=== PATIENT | male | born 1940 | race Caucasian/White ===

== ENCOUNTER 2018-03-07 11:00 | Inpatient (IN) | payer OTHER, MEDICARE ==
[2018-02-28 14:12] LABS: BASOPHILS % (AUTO) 0.3 % (0-1); EOSINOPHILS # (AUTO) 0.1 X10'3 (0-0.9); EOSINOPHILS % (AUTO) 1.6 % (0-6); LYMPHOCYTES # (AUTO) 1.8 X10'3 (1.1-4.8); LYMPHOCYTES % (AUTO) 27.3 % (21-51); MEAN CORPUSCULAR HEMOGLOBIN 30.4 PG (27.0-31.0); MEAN CORPUSCULAR HGB CONC 33.1 % (33.0-36.5); MEAN CORPUSCULAR VOLUME 91.6 FL (78-98); MEAN PLATELET VOLUME 8.1 FL (7.4-10.4); MONOCYTES # (AUTO) 0.6 X10'3 (0-0.9); MONOCYTES % (AUTO) 9.4 % (2-12); NEUTROPHILS # (AUTO) 4.1 X10'3 (1.8-7.7); NEUTROPHILS % (AUTO) 61.4 % (42-75); PRE OP HEMATOCRIT 41.7 % (42.0-52.0); PRE OP HEMOGLOBIN 13.8 g/dL (14.0-17.9); PRE OP PLATELET COUNT 212 X10'3 (140-440); RED BLOOD COUNT 4.55 X10'6 (4.70-6.10); RED CELL DISTRIBUTION WIDTH 13.1 % (11.5-14.5)
[2018-02-28 14:19] LABS: ALBUMIN 3.9 G/DL (3.4-5.0); ALBUMIN/GLOBULIN RATIO 1.2 (1.1-1.5); ALKALINE PHOSPHATASE 71 IU/L (46-116); BLOOD UREA NITROGEN 21 MG/DL (7-18); BUN/CREATININE RATIO 24.1 (5.4-32.0); CHLORIDE 104 MMOL/L (99-107); CREATININE 0.87 MG/DL (0.60-1.10); PRE OP ALT 28 U/L (30-65); PRE OP ANION GAP 8 (8-16); PRE OP AST 15 U/L (10-37); PRE OP BILIRUB, TOTAL 0.3 MG/DL (0.0-1.0); PRE OP GLUCOSE 97 MG/DL (70-104); PRE OP POTASSIUM 3.8 MMOL/L (3.4-5.1); PRE OP SODIUM 141 MMOL/L (135-145); TOTAL PROTEIN 7.2 G/DL (6.4-8.2); eGFR 85 ML/MIN
[2018-02-28 14:22] LABS: PRE OP PROTIME 10.1 SECONDS (9.0-12.0)
[2018-02-28 14:23] LABS: CLARITY,URINE CLEAR (Clear); COLOR,URINE YELLOW (Yellow); GLUCOSE, URINE NEGATIVE (Neg); KETONES,URINE NEGATIVE (Neg); LEUKOCYTE ESTERASE ,URINE NEGATIVE (Neg); NITRITES, URINE NEGATIVE (Neg); OCCULT BLOOD,URINE TRACE-INTACT (Neg); PROTEIN,URINE NEGATIVE (Neg); UROBILINOGEN,URINE 0.2 E.U/dL (0.2-1.0)
[2018-02-28 14:25] LABS: UA COLLECTION TYPE CLN CATCH MIDSTREAM
[2018-02-28 14:35] LABS: BACTERIA,URINE NONE SEEN /HPF (Neg); RBC,URINE 0-2 /HPF (0-2); SQUAMOUS EPITHELIAL CELL,UR FEW /LPF (FEW); WBC,URINE 0-4 /HPF (0-4)
[~2018-03-07] VITALS: Ht 177.8 cm; Wt 93.0 kg
[2018-03-07] VITALS (17 sets, daily range): BP systolic 104–143; BP diastolic 65–92
[~2018-03-07 11:00] MED LIST: ASPI-529 PO; FINA5TAB11 PO; PRAV80TA3 PO; acetaminophen 325mg tablet PO ONE; ceFAZolin inj. 2,000 MG in dextrose 5%-water 50ml 50 ML IV ONE; celeCOXIB 100mg capsule PO ONE; famotidine 20mg tablet PO ONE; gabapentin 300mg capsule PO ONE; metoclopramide 5 mg/ml inj IV ONE; normal saline 1000ml 1,000 ML IV SCH; oxyCODONE SR 10mg (sust. release) tab PO ONE; ringers solution, lacted 1,000 ML IV SCH; tranexamic acid inj. 1,000 MG in normal saline 100ml IV soln 90 ML IV ONE; vancomycin inj 1,500 MG in normal saline 300ml IV soln IV ONE
[2018-03-07] MEDS ORDERED: LIDOcaine 1% (10mg/ml) 2ml vial ONE (11:26)
[2018-03-07] MEDS ORDERED: diphenhydrAMINE 25mg capsule PO PRN ×2 (11:30)
[2018-03-07] MEDS ORDERED: bisacodyl 10mg suppository rectal RC PRN (11:30)
[2018-03-07] MEDS ORDERED: oxyCODONE/APAP 10/325mg tablet PO PRN (11:30)
[2018-03-07] MEDS ORDERED: ondansetron/PF 4mg/2ml inj IV PRN ×2 (11:30→15:45)
[2018-03-07] MEDS ORDERED: HYDROmorphone 1 mg/ml syringe IV PRN ×2 (11:30)
[2018-03-07] MEDS ORDERED: acetaminophen 325mg tablet PO PRN (11:30)
[2018-03-07] MEDS ORDERED: magnesium hydroxide 30ml (MOM) UD suspension PO PRN (11:30)
[2018-03-07] MEDS ORDERED: vancomycin 1,000mg inj ONE (13:51)
[2018-03-07] MEDS ORDERED: ketorolac trometh. 30mg/ml inj. ONE (13:51)
[2018-03-07] MEDS ORDERED: ROPIVAcaine 0.5% (5mg/ml) 30ml vial ONE (13:57)
[2018-03-07] MEDS ORDERED: LIDOcaine 2% (20mg/ml) 5ml vial ONE (14:00)
[2018-03-07] MEDS ORDERED: propofol inj 20 ML IV ONE (14:01)
[2018-03-07] MEDS ORDERED: fentaNYL/PF 50MCG/1 ML 2ML syringe ONE (14:04)
[2018-03-07] MEDS ORDERED: midazolam 2 mg/2 ml injection ONE (14:05)
[2018-03-07] MEDS ORDERED: ondansetron/PF 4mg/2ml inj ONE (14:47)
[2018-03-07] MEDS ORDERED: dexamethasone sod phosphate 10mg/ml inj ONE (14:47)
[2018-03-07] MEDS ORDERED: sevoflurane 250ml liquid IH ONE (14:47)
[2018-03-07] MEDS ORDERED: ROPIVAcaine inj 250 MG, epiNEPHrine inj 0.5 MG, CloNIDine/PF inj 80 MCG in normal salin... SQ ONE (15:00)
[2018-03-07] MEDS ORDERED: ringers solution, lacted 1,000 ML IV SCH (15:42)
[2018-03-07] MEDS ORDERED: enalaprilat dihydrate 2.5mg/2ml vial IV PRN (15:45)
[2018-03-07] MEDS ORDERED: hydrALAZINE 20mg/ml inj. IV PRN (15:45)
[2018-03-07] MEDS ORDERED: meperidine/PF 25mg/ml syringe IV PRN ×2 (15:45)
[2018-03-07] MEDS ORDERED: morphine 4 MG/ML inj SYRINge IV PRN ×2 (15:45)
[2018-03-07] MEDS ORDERED: cefazolin/dext.iso 2gm/100ml 100 ML IV SCH (20:00)
[2018-03-07] MEDS: ascorbic acid 500mg tablet PO SCH (20:26)
[2018-03-07] MEDS: cefazolin/dext.iso 2gm/50ml 50 ML IV SCH (20:27)
[2018-03-07] MEDS: gabapentin 300mg capsule PO SCH ×2 (20:27→20:29)
[2018-03-07] MEDS: potassium cl 20mEq in 1/2 NS 1,000 ML IV SCH ×2 (20:28→20:29)
[2018-03-07] MEDS ORDERED: tranexamic acid inj. 1,000 MG in normal saline 100ml IV soln 100 ML IV ONE (20:30)
[2018-03-07] MEDS ORDERED: sennosides 8.6mg tablet PO SCH (21:00)
[2018-03-07] MEDS: oxyCODONE/APAP 5-325mg tablet PO PRN (21:07)
[2018-03-08 02:00] VITALS: BP 103/58
[2018-03-08] MEDS: cefazolin/dext.iso 2gm/50ml 50 ML IV SCH ×2 (04:57→12:00)
[2018-03-08] MEDS: potassium cl 20mEq in 1/2 NS 1,000 ML IV SCH ×2 (05:04→11:28)
[2018-03-08 06:00] VITALS: BP 112/69
[2018-03-08 07:06] LABS: BASOPHILS % (AUTO) 0 % (0-1); EOSINOPHILS % (AUTO) 0 % (0-6); HEMATOCRIT 36.1 % (42.0-52.0); HEMOGLOBIN 12.2 g/dl (14.0-17.9); LYMPHOCYTES # (AUTO) 0.7 X10'3 (1.1-4.8); LYMPHOCYTES % (AUTO) 6.9 % (21-51); MEAN CORPUSCULAR HEMOGLOBIN 30.5 PG (27.0-31.0); MEAN CORPUSCULAR HGB CONC 33.7 % (33.0-36.5); MEAN CORPUSCULAR VOLUME 90.7 FL (78-98); MEAN PLATELET VOLUME 8.4 FL (7.4-10.4); MONOCYTES # (AUTO) 0.6 X10'3 (0-0.9); MONOCYTES % (AUTO) 6.1 % (2-12); NEUTROPHILS # (AUTO) 8.7 X10'3 (1.8-7.7); PLATELET COUNT 189 X10'3 (140-440); RED BLOOD COUNT 3.98 X10'6 (4.70-6.10); RED CELL DISTRIBUTION WIDTH 13.3 % (11.5-14.5)
[2018-03-08 07:19] LABS: ANION GAP 7 (8-16); CHLORIDE 103 MMOL/L (99-107); POTASSIUM 4.2 MMOL/L (3.5-5.1); SODIUM 138 MMOL/L (135-145); TOTAL CARBON DIOXIDE 28.2 MMOL/L (24-32)
[2018-03-08] MEDS ORDERED: multivitamins, therapeutics tablet PO SCH (08:00)
[2018-03-08] MEDS ORDERED: aspirin 325mg tablet PO SCH (08:30)
[2018-03-08] MEDS: ascorbic acid 500mg tablet PO SCH (08:38)
[2018-03-08] MEDS: gabapentin 300mg capsule PO SCH ×2 (08:38→13:10)
[2018-03-08] MEDS: oxyCODONE/APAP 5-325mg tablet PO PRN ×2 (08:39→13:10)
[2018-03-08 10:00] VITALS: BP 123/63
[2018-03-08] MEDS ORDERED: ASPI-1 PO (12:14)
[2018-03-08] MEDS ORDERED: celeCOXIB 100mg capsule PO SCH (20:00)
[2018-03-08] MEDS ORDERED: lactobacillus rhamnosus 10,000 MMU CELLS/CAPSULE PO SCH (20:00)
[2018-03-08] MEDS ORDERED: atorvastatin 20mg tablet PO SCH (21:00)
[2018-03-09] MEDS ORDERED: finasteride 5mg tablet PO SCH (08:00)
== END 2018-03-08 13:30 | disposition home or self-care (01) | DRG 470 ==
LOC: PAS IN 11:00 → EDSTATUS 14:30 → ORTHO 4S 18:50
PROVIDERS: ADMIT Orthopaedic Surgery; ATTEND Orthopaedic Surgery
PROC: 3E0T3BZ Introduction of Anesthetic Agent into Peripheral Nerves and Plexi, Percutaneous Approach (ICD-10-PCS; 2018-03-07)
PROC: 8E0Y0CZ Robotic Assisted Procedure of Lower Extremity, Open Approach (ICD-10-PCS; 2018-03-07)
PROC: 0SRC0J9 Replacement of Right Knee Joint with Synthetic Substitute, Cemented, Open Approach (ICD-10-PCS; principal; 2018-03-07 14:47)
DX: M17.11 Unilateral primary osteoarthritis, right knee (principal); D62 Acute posthemorrhagic anemia; E78.5 Hyperlipidemia, unspecified; I48.91 Unspecified atrial fibrillation; N40.0 Benign prostatic hyperplasia without lower urinary tract symptoms; Z79.899 Other long term (current) drug therapy; Z72.89 Other problems related to lifestyle; Z87.891 Personal history of nicotine dependence; Z85.51 Personal history of malignant neoplasm of bladder; Z92.21 Personal history of antineoplastic chemotherapy
CPT/HCPCS: 36415; 71046; 73560; 80051; 80053; 81001; 85025; 85610; 85730; 86885; 86900; 86901; 87070; 93005; 97116; 97162; 97530; A6455; A7000; C1713; C1758; C1776; G0378; J0171; J0690; J0735; J1100; J1885; J2001; J2175; J2250; J2405; J2704; J2765; J2795; J3010; J3370; J3490; J7030; J7060; J7120